=== PATIENT | female | born 1995 | race Asian ===

== ENCOUNTER 2021-03-11 13:08 | Outpatient (CLI) ==
[~2021-03-11] VITALS: Ht 160 cm; Wt 67.7 kg
[2021-03-11 13:21] VITALS: BP 122/76
[2021-03-11] MEDS ORDERED: PRENTAB9 PO (13:29)
[2021-03-11] MEDS ORDERED: HOME MED LIST COMPLETE! XX SCH (13:30)
[2021-03-11 14:44] VITALS: BP 127/97
[2021-03-11 14:54] VITALS: BP 121/86
--- NOTE | 2021-03-11 15:10 | IPNPDOC ---
Text Note Date of Service The patient was seen on 03/11/21. NOTE Vital Signs Label Value Date Time Blood Pressure Assessment 127/97 (107) 03/11/21 1444 Source Automatic Cuff (NIBP) Respiratory Rate 18 bpm 03/11/21 1444 Pulse 71 03/11/21 1444 Patient Temperature 98.2 degrees F 03/11/21 1444 Respiratory Rate 18 bpm 03/11/21 1322 Pulse 76 03/11/21 1322 Blood Pressure Assessment 122/76 (91) 03/11/21 1321 Source Automatic Cuff (NIBP) Respiratory Rate 18 bpm 03/11/21 1321 Pulse 72 03/11/21 1321 Patient Temperature 98.5 degrees F 03/11/21 1321 Temperature Source Temporal 03/11/21 1321 03/11/21 25 YO LMP UNKNOWN EDC BY EARLY US 6 WEEKS 1 DAY 03/17/21 SEEN RE DECREASED MOVEMENT X 24 HOURS NO LOS NO BLEEDING NO CONTRACTIONS . RISK FACTORS GBS POSITIVE LATE ENTRY FOR CARE EXAMINATION NO ACUTE DISTRESS NO ACTIVE CONTRACTIONS CATEGORY 1 STRIP WITH MODERATE VARIABILITY, BASELINE NORMAL OCCASIONAL CONTRACTIONS NOT FELT BY PATIENT PELVIC EXAMINATION CERVIX ANTERIOR 2 CM BULGING MEMBRANES VERTEX SOFT 60% EFFACED -3 STATION . US CONSENTED IUP VERTEX PRESENTATION FHR 144 BPM, SPONTANEOUS RESPIRATIONS NOTED LIMB MOTION NOTED GOOD FLEXION FOREIGN MVP 4.60 CM TOTAL FLUID 11.29 CM REVIEWED [facility] BLEEDING WHEN TO CALL PROVIDER . REVIEWED GBS NEEDED ANTIBIOTICS 4 HOURS PRE DELIVERY EXPRESSED UNDERSTANDING DISCHARGED UNDELIVERED VS,Fishbone, I+O VS, Fishbone, I+O Vital Signs Date Time Temp Pulse Resp B/P (MAP) Pulse Ox O2 Delivery O2 Flow Rate FiO2 03/11/21 14:44 98.2 71 18 127/97 (107) Chapin Zhou MD Mar 11, 2021 15:08
== END 2021-03-11 15:05 | disposition home or self-care (01) ==
LOC: M LDO 13:08
PROVIDERS: ATTEND Obstetrics & Gynecology
DX: O36.8130 Decreased fetal movements, third trimester, not applicable or unspecified (principal); Z3A.00 Weeks of gestation of pregnancy not specified
CPT/HCPCS: 59025; 76815; G0378; G0463

== ENCOUNTER 2021-03-18 07:45 | Inpatient (IN) | payer OTHER ==
[2021-03-18] VITALS (33 sets, daily range): BP systolic 107–161; BP diastolic 60–116
[~2021-03-18] VITALS: Ht 160 cm; Wt 69.5 kg
[~2021-03-18 07:45] MED LIST: PRENTAB9 PO
[2021-03-18] MEDS ORDERED: HOME MED LIST COMPLETE! XX SCH (08:15)
[2021-03-18] MEDS ORDERED: LACTATED RINGER'S 1000 ML IV STA (08:51)
[2021-03-18] MEDS ORDERED: PENICILLIN G POTASSIUM IV 5 MU in D5W MINI-BAG PLUS 100 ML IV STA (08:51)
[2021-03-18] MEDS ORDERED: OXYTOCIN DRIP 30 UNITS in IV 1 EA IV PRN (08:55)
[2021-03-18] MEDS ORDERED: LIDOCAINE 1% MDV 20ML VIAL INFIL PRN (08:55)
[2021-03-18] MEDS ORDERED: ONDANSETRON 4MG/2ML VIAL IV ONE (09:15)
[2021-03-18 09:25] LABS: HEMATOCRIT 36.6 % (36.0-47.0); HEMOGLOBIN 12.6 g/dl (12.0-15.5); MEAN CORPUSCULAR HEMOGLOBIN 30.3 pg (27.0-33.0); MEAN CORPUSCULAR HGB CONC 34.4 g/dl (32.0-36.5); PLATELET COUNT, AUTOMATED 148 10^3/uL (150-450); RED BLOOD COUNT 4.16 10^6/uL (4.00-5.40); WHITE BLOOD COUNT 9.1 10^3/uL (4.0-10.0)
[2021-03-18] MEDS: LR 1,000 ML IV SCH ×2 (09:25→17:18)
[2021-03-18] MEDS ORDERED: FENTANYL 2MCG/ML ROPIVACAINE 0.2% IN 0.9% NACL 100ML IVBAG As Ordered ONE (09:42)
[2021-03-18] MEDS ORDERED: EPIDURAL/PCA KEYS XX PRN (11:15)
[2021-03-18] MEDS ORDERED: REFRIGERATOR IV KEYS XX PRN (11:15)
[2021-03-18] MEDS ORDERED: ePHEDrine SULFATE 25 MG/5 ML(5MG/ML) SYRINGE IV PRN (11:15)
[2021-03-18] MEDS ORDERED: EPIDURAL COMMENT XX SCH (11:15)
[2021-03-18] MEDS ORDERED: LACTATED RINGER'S 1000 ML IV PRN (11:15)
[2021-03-18] MEDS ORDERED: FENTANYL/ROPIVACAINE/NACL BAG 100 ML EPIDURAL SCH (11:15)
[2021-03-18] MEDS ORDERED: diphenhydrAMINE 50MG/ML VIAL (J1200) IV PRN (11:15)
[2021-03-18] MEDS ORDERED: ONDANSETRON 4MG/2ML VIAL IV PRN (11:15)
[2021-03-18] MEDS ORDERED: NALOXONE INJ 0.4MG/1ML VIAL (J2310 PER 1MG) IV PRN (11:15)
[2021-03-18] MEDS: PENICILLIN G POTASSIUM IV 2.5 MU in IV 1 EA IV SCH ×2 (13:05→17:18)
[2021-03-18] MEDS ORDERED: RHOGAM 300 MCG (1500 IU) INJ (J2790) IM SCH (19:15)
[2021-03-18] MEDS ORDERED: DIBUCAINE 1% OINTMENT 30GM TOP PRN (19:15)
[2021-03-18] MEDS ORDERED: METHYLERGONOVINE MALEATE 0.2 MG TAB PO PRN (19:15)
[2021-03-18] MEDS ORDERED: DOCUSATE SODIUM 100MG CAPSULE PO PRN (19:15)
[2021-03-18] MEDS ORDERED: MEASLES,MUMPS,RUBELLA VACCINE INJ (MMR-II) (90707) SC SCH (19:15)
[2021-03-18] MEDS ORDERED: ACETAMINOPHEN TAB 650MG DOSE (2X325MG) PO PRN (19:15)
[2021-03-18] MEDS: IBUPROFEN 800 MG TAB PO PRN (21:15)
[2021-03-19] MEDS: LR 1,000 ML IV SCH (00:55)
[2021-03-19] MEDS: IBUPROFEN 800 MG TAB PO PRN (05:47)
[2021-03-19 06:00] VITALS: BP 124/79
[2021-03-19] MEDS: PRENATAL VITAMINS CHEWABLE TABLET PO SCH (09:18)
[2021-03-19 18:00] VITALS: BP 141/91
[2021-03-20 06:00] VITALS: BP 141/85
[2021-03-20] MEDS ORDERED: PRENCHW PO (07:16)
[2021-03-20] MEDS ORDERED: IBUP80TA PO (07:16)
[2021-03-20] MEDS ORDERED: DOCU100C16 PO (07:16)
[2021-03-20] MEDS: PRENATAL VITAMINS CHEWABLE TABLET PO SCH (09:30)
== END 2021-03-20 14:06 | disposition home or self-care (01) | DRG 807 ==
LOC: M LDO 07:45 → M LDI 08:54 → M OBS 20:28
PROVIDERS: ADMIT Registered Nurse; ATTEND Registered Nurse
PROC: 10E0XZZ Delivery of Products of Conception, External Approach (ICD-10-PCS; principal; 2021-03-18)
PROC: 10907ZC Drainage of Amniotic Fluid, Therapeutic from Products of Conception, Via Natural or Artificial Opening (ICD-10-PCS; 2021-03-18)
PROC: 0HQ9XZZ Repair Perineum Skin, External Approach (ICD-10-PCS; 2021-03-18)
DX: O48.0 Post-term pregnancy (principal); Z37.0 Single live birth; Z3A.40 40 weeks gestation of pregnancy; O99.824 Streptococcus B carrier state complicating childbirth; O70.0 First degree perineal laceration during delivery

== ENCOUNTER 2023-05-18 06:31 | Inpatient (IN) | payer OTHER ==
[2023-05-18] VITALS (9 sets, daily range): BP systolic 110–146; BP diastolic 66–89; O2SAT 98–100
[~2023-05-18] VITALS: Ht 160 cm; Wt 71.8 kg
[~2023-05-18 06:31] MED LIST changes: +DOCU100C16 PO; +IBUP80TA PO; +PRENCHW PO
[2023-05-18] MEDS ORDERED: METHYLERGONOVINE MALEATE 0.2MG/ML 1ML VIAL IM PRN (06:45)
[2023-05-18] MEDS ORDERED: CARBOPROST TROMETHAMINE 250 MCG/ML AMP IM PRN (06:45)
[2023-05-18] MEDS ORDERED: OXYTOCIN INJ 10UNITS/ML 1ML VIAL IM PRN (06:45)
[2023-05-18] MEDS ORDERED: LIDOCAINE 1% MDV 20ML VIAL INFIL PRN (06:45)
[2023-05-18] MEDS ORDERED: OXYTOCIN INJ 10UNITS/ML 1ML VIAL IV PRN (06:45)
[2023-05-18] MEDS ORDERED: OXYTOCIN DRIP 30 UNITS in IV 1 EA IV PRN ×3 (06:45)
[2023-05-18] MEDS ORDERED: TRANEXAMIC ACID INJection 1,000 MG in NS 100 ML IV PRN (06:45)
[2023-05-18] MEDS ORDERED: OXYTOCIN 30UNITS IN 0.9% NaCl 500ML IV BAG As Ordered ONE (06:48)
[2023-05-18 06:58] LABS: HEMATOCRIT 41.1 % (36.0-47.0); HEMOGLOBIN 14.4 g/dl (12.0-15.5); MEAN CORPUSCULAR VOLUME 88.6 fl (80.0-96.0); PLATELET COUNT, AUTOMATED 175 10^3/uL (150-450); RED BLOOD COUNT 4.64 10^6/uL (4.00-5.40); WHITE BLOOD COUNT 7.9 10^3/uL (4.0-10.0)
[2023-05-18] MEDS: LR 1,000 ML IV SCH (07:05)
[2023-05-18] MEDS ORDERED: DOCUSATE SODIUM 100MG CAPSULE PO PRN (07:15)
[2023-05-18] MEDS ORDERED: IBUPROFEN 600MG TAB PO PRN (07:15)
[2023-05-18] MEDS ORDERED: ACETAMINOPHEN 500 MG TAB PO PRN (07:15)
[2023-05-18] MEDS ORDERED: DIBUCAINE 1% OINTMENT 30GM TOP PRN (07:15)
[2023-05-18] MEDS ORDERED: METHYLERGONOVINE MALEATE 0.2 MG TAB PO PRN (07:15)
[2023-05-18] MEDS ORDERED: TUMS500C PO (07:41)
[2023-05-18] MEDS ORDERED: HOME MED LIST COMPLETE! XX SCH (07:45)
[2023-05-18] MEDS: OXYTOCIN DRIP 30 UNITS in IV 1 EA IV SCH ×2 (07:58→07:59)
[2023-05-18] MEDS: PRENATAL VITAMINS CHEWABLE TABLET PO SCH (08:38)
[2023-05-18] MEDS: IBUPROFEN 800 MG TAB PO PRN (08:39)
[2023-05-18] MEDS: LACTATED RINGER'S 1000 ML IV STA (10:30)
[2023-05-18] MEDS: ACETAMINOPHEN TAB 650MG DOSE (2X325MG) PO PRN (20:45)
[2023-05-19 06:00] VITALS: BP 102/54; O2SAT 98
[2023-05-19] MEDS ORDERED: COLA100C5 PO (10:32)
[2023-05-19] MEDS ORDERED: ACET1TAB55 PO (10:32)
[2023-05-19] MEDS ORDERED: IBUP-1022 PO (10:32)
[2023-05-20] MEDS ORDERED: MEASLES,MUMPS,RUBELLA VACCINE INJ (MMR-II) SC.IMMUN ONE (09:00)
== END 2023-05-19 15:50 | disposition home or self-care (01) | DRG 807 ==
LOC: M LDO 06:31 → M LDI 06:38 → M OBS 08:41 → M LDI 08:46 → M OBS 10:13
PROVIDERS: ADMIT Advanced Practice Midwife; ATTEND Advanced Practice Midwife
PROC: 10E0XZZ Delivery of Products of Conception, External Approach (ICD-10-PCS; principal; 2023-05-18)
PROC: 10907ZC Drainage of Amniotic Fluid, Therapeutic from Products of Conception, Via Natural or Artificial Opening (ICD-10-PCS; 2023-05-18)
DX: O69.81X0 Labor and delivery complicated by cord around neck, without compression, not applicable or unspecified (principal); Z37.0 Single live birth; Z3A.40 40 weeks gestation of pregnancy